=== PATIENT | male | born 1960 | race Caucasian/White ===

== ENCOUNTER 2022-02-03 13:30 | Emergency (ER) | payer MEDICARE ==
[2022-02-03] MEDS ORDERED: Sodium Chloride 0.9% 10 ML Syringe FLUSH PRN (14:17)
[2022-02-03] MEDS ORDERED: Sodium Chloride 0.9% 1,000 ML IV ONE (14:19)
[2022-02-03] MEDS ORDERED: Pantoprazole 80 MG in Sodium Chloride 0.9% 100 ML IV ONE (15:38)
[2022-02-03 15:52] LABS: CORONAVIRUS COVID-19 NAA POSITIVE (NEGATIVE)
[2022-02-03] MEDS ORDERED: Sodium Chloride 0.9% 500 ML IV ONE (16:21)
[2022-02-03] MEDS ORDERED: Pantoprazole 80 MG in Sodium Chloride 0.9% 100 ML IV SCH (17:45)
[2022-02-03] MEDS ORDERED: Octreotide 500 MCG in Sodium Chloride 0.9% 497.5 ML IV SCH (18:15)
[2022-02-03 20:42] VITALS: BP 144/56; PULSE 85
== END 2022-02-03 21:42 ==
LOC: JP.ED 13:30
DX: U07.1 COVID-19 (principal); K92.2 Gastrointestinal hemorrhage, unspecified; D50.0 Iron deficiency anemia secondary to blood loss (chronic); R53.1 Weakness; N17.9 Acute kidney failure, unspecified
CPT/HCPCS: 0241U; 36415; 36430; 80053; 83690; 85014; 85018; 85025; 85610; 85730; 86850; 86900; 86901; 86920; 86922; 93005; 93010; 96365; 96366; 96367; 99284; 99285-25; C9113; J2354-JA; J3490; J7030; J7040; P9016

== ENCOUNTER 2022-03-13 23:17 | Emergency (ER) | payer MEDICARE ==
[2022-03-13] MEDS ORDERED: Sodium Chloride 0.9% 10 ML Syringe FLUSH PRN (23:26)
[2022-03-14 00:18] VITALS: BP 112/65; PULSE 77
[2022-03-14] MEDS ORDERED: MVI, Adult with Vitamin K 10 ML, Thiamine 100 MG, Folic Acid 1 MG, Magnesium Sulfate 3 ... IV SCH ×5 (00:45)
== END 2022-03-14 09:30 | disposition home or self-care (01) ==
LOC: JP.ED 23:17
DX: F10.920 Alcohol use, unspecified with intoxication, uncomplicated (principal); K85.20 Alcohol induced acute pancreatitis without necrosis or infection; E87.0 Hyperosmolality and hypernatremia; Z79.899 Other long term (current) drug therapy
CPT/HCPCS: 36415; 80053; 80305-QW; 80307; 81001; 83690; 85025; 96365; 99284-25; 99285; J3411; J3475; J3490; J7030

== ENCOUNTER 2024-08-02 11:47 | Emergency (ER) | payer MEDICARE, MEDICAID ==
[2024-08-02 12:28] VITALS: BP 114/82; PULSE 79
[2024-08-02] MEDS ORDERED: methylPREDNISolone Sod Succ 125 MG in Dextrose 5% in Water 100 ML IV ONE (13:08)
[2024-08-02 13:48] LABS: BASOPHILS ABSOLUTE AUTO 0.07 K/uL (0.00-0.10); BASOPHILS PERCENT AUTO 0.9 % (0.1-1.3); EOSINOPHILS ABSOLUTE AUTO 0.13 K/uL (0.00-0.40); EOSINOPHILS PERCENT AUTO 1.6 % (0.0-5.4); HEMATOCRIT 37.4 % (38.4-49.7); HEMOGLOBIN 12.8 g/dL (12.9-16.9); IMMATURE GRAN ABSOLUTE AUTO 0.03 K/uL (0.00-0.23); IMMATURE GRAN PERCENT AUTO 0.4 % (0.0-0.7); LYMPHOCYTES ABSOLUTE AUTO 1.25 K/uL (0.8-3.3); LYMPHOCYTES PERCENT AUTO 15.3 % (11.4-47.7); MEAN CORPUSCULAR HEMOGLOBIN 33.1 pg (31.6-35.5); MEAN CORPUSCULAR HGB CONC 34.2 g/dL (31.6-35.5); MEAN CORPUSCULAR VOLUME 96.6 fL (81.4-99.0); MONOCYTES ABSOLUTE AUTO 0.85 K/uL (0.20-0.90); MONOCYTES PERCENT AUTO 10.4 % (3.3-12.6); NEUTROPHILS ABSOLUTE AUTO 5.86 K/uL (1.0-7.6); NEUTROPHILS PERCENT AUTO 71.4 % (40.0-78.1); PLATELET COUNT,PLT 234 K/uL (130-375); RED BLOOD CELL COUNT 3.87 M/uL (4.14-5.76); WHITE BLOOD CELL COUNT,WBC 8.2 K/uL (3.2-11.0)
[2024-08-02] MEDS: Sodium Chloride 0.9% 100 ML IV SCH (13:57)
[2024-08-02] MEDS: Sodium Chloride 0.9% 10 ML Syringe FLUSH PRN (13:57)
[2024-08-02] MEDS: Iopamidol 612 MG/ML 100 ML Bottle IV SCH (13:57)
[2024-08-02] MEDS: methylPREDNISolone Sodium Succinate 125 MG/2 ML SDV IVPUSH ONE (13:59)
[2024-08-02] MEDS: diphenhydrAMINE 50 MG/ML SDV IVPUSH ONE (13:59)
[2024-08-02 14:11] LABS: A/G RATIO 1.1 (1.2-2.2); ALANINE AMINOTRANSFERASE,ALT 31 U/L (12-78); ALBUMIN 4.1 g/dL (3.4-5.0); ALKALINE PHOSPHATASE 59 U/L (46-116); ASPARTATE AMNIOTRANSFERASE,AST 41 U/L (15-37); BILIRUBIN TOTAL 0.9 mg/dL (0.2-1.0); BLOOD UREA NITROGEN,BUN 15 mg/dL (7-18); CALCIUM 9.6 mg/dL (8.5-10.1); CARBON DIOXIDE,CO2 23 mmol/L (21-32); CHLORIDE,CL 93 mmol/L (100-108); CREATININE 1.3 mg/dL (0.8-1.3); EST CRCL DRUG DOSING (CG) 60.34 mL/min; ESTIMATED GFR 61 mL/min (>60); GLUCOSE RANDOM 83 mg/dL (74-106); POTASSIUM,K 3.9 mmol/L (3.6-5.2); PROTEIN TOTAL,TP 7.9 g/dL (6.4-8.2); SODIUM,NA 130 mmol/L (140-148)
[2024-08-02 14:12] LABS: ANION GAP 17.9 mmol/L (5.0-14.0)
[2024-08-02 14:31] LABS: APPEARANCE,URINE CLEAR (CLEAR); BILIRUBIN,URINE NEGATIVE (NEGATIVE); COLOR,URINE YELLOW (YELLOW); GLUCOSE,URINE NEGATIVE (NEGATIVE); KETONES,URINE 15 mg/dL (NEGATIVE); LEUKOCYTE ESTERASE,URINE NEGATIVE (NEGATIVE); NITRITE,URINE NEGATIVE (NEGATIVE); OCCULT BLOOD,URINE NEGATIVE (NEGATIVE); PH,URINE 5.5 (5.0-8.0); PROTEIN,URINE NEGATIVE (NEGATIVE); UROBILINOGEN,URINE 0.2 EU/dL (0.2-1.0)
[2024-08-02 14:44] LABS: BACTERIA,URINE RARE; EPITHELIAL CELLS,URINE RARE; MUCUS,URINE RARE; RBC,URINE NOT SEEN (0-5); WBC,URINE 0-5 (0-5)
[2024-08-02 14:45] LABS: AMORPHOUS SEDIMENT,URINE NOT SEEN
== END 2024-08-02 15:45 | disposition home or self-care (01) ==
LOC: JP.ED 11:47
DX: R22.0 Localized swelling, mass and lump, head (principal); Z86.16 Personal history of COVID-19; Z79.899 Other long term (current) drug therapy
CPT/HCPCS: 36415; 70450; 70488; 80053; 81001; 85025; 96374; 96375; 99284; J1200; J2919; J3490; Q9967

== ENCOUNTER 2025-07-05 03:21 | Day surgery (SDC) | payer MEDICAID, MEDICARE ==
[2025-07-05 03:40] LABS: BASOPHILS ABSOLUTE AUTO 0.06 K/uL (0.00-0.10); BASOPHILS PERCENT AUTO 0.5 % (0.1-1.3); EOSINOPHILS PERCENT AUTO 0.2 % (0.0-5.4); IMMATURE GRAN ABSOLUTE AUTO 0.05 K/uL (0.00-0.23); IMMATURE GRAN PERCENT AUTO 0.4 % (0.0-0.7); LYMPHOCYTES ABSOLUTE AUTO 0.86 K/uL (0.8-3.3); LYMPHOCYTES PERCENT AUTO 6.9 % (11.4-47.7); MONOCYTES ABSOLUTE AUTO 0.78 K/uL (0.20-0.90); MONOCYTES PERCENT AUTO 6.2 % (3.3-12.6); NEUTROPHILS ABSOLUTE AUTO 10.75 K/uL (1.0-7.6); NEUTROPHILS PERCENT AUTO 85.8 % (40.0-78.1); PLATELET COUNT,PLT 317 K/uL (130-375); RED BLOOD CELL COUNT 3.62 M/uL (4.14-5.76); WHITE BLOOD CELL COUNT,WBC 12.5 K/uL (3.2-11.0)
[2025-07-05 03:41] LABS: EOSINOPHILS ABSOLUTE AUTO 0.02 K/uL (0.00-0.40)
[2025-07-05 04:01] LABS: A/G RATIO 0.9 (1.2-2.2); ALANINE AMINOTRANSFERASE,ALT 23 U/L (12-78); ASPARTATE AMNIOTRANSFERASE,AST 19 U/L (15-37); BILIRUBIN TOTAL 1.2 mg/dL (0.2-1.0); BLOOD UREA NITROGEN,BUN 46 mg/dL (7-18); CARBON DIOXIDE,CO2 24 mmol/L (21-32); CHLORIDE,CL 99 mmol/L (100-108); CREATININE 1.5 mg/dL (0.8-1.3); EST CRCL DRUG DOSING (CG) 50.02 mL/min; ESTIMATED GFR 51 mL/min (>60); GLUCOSE RANDOM 149 mg/dL (74-106); POTASSIUM,K 4.5 mmol/L (3.6-5.2); PROTEIN TOTAL,TP 7.8 g/dL (6.4-8.2); SODIUM,NA 137 mmol/L (140-148)
[2025-07-05] MEDS: Ondansetron 4 MG/2 ML SDV IVPUSH ONE (04:27)
[2025-07-05] MEDS: Magnesium Sulfate 2 GM/50 mL 2 GM in Premix Bag 1 BAG IV ONE (06:58)
[2025-07-05 07:24] LABS: INR 1.1
[2025-07-05] MEDS ORDERED: fentaNYL 50 MCG/ML SDV ONE (08:30)
[2025-07-05] MEDS ORDERED: Midazolam 1 MG/ML 2 ML SDV ONE (08:30)
[2025-07-05] MEDS ORDERED: Propofol 200 MG/20 ML SDV ONE (08:33)
[2025-07-05 09:36] LABS: BASOPHILS ABSOLUTE AUTO 0.04 K/uL (0.00-0.10); BASOPHILS PERCENT AUTO 0.5 % (0.1-1.3); EOSINOPHILS PERCENT AUTO 0.1 % (0.0-5.4); IMMATURE GRAN PERCENT AUTO 0.2 % (0.0-0.7); LYMPHOCYTES ABSOLUTE AUTO 0.89 K/uL (0.8-3.3); LYMPHOCYTES PERCENT AUTO 10.7 % (11.4-47.7); MONOCYTES ABSOLUTE AUTO 0.68 K/uL (0.20-0.90); MONOCYTES PERCENT AUTO 8.2 % (3.3-12.6); NEUTROPHILS ABSOLUTE AUTO 6.64 K/uL (1.0-7.6); NEUTROPHILS PERCENT AUTO 80.3 % (40.0-78.1); PLATELET COUNT,PLT 291 K/uL (130-375); RED BLOOD CELL COUNT 3.13 M/uL (4.14-5.76); WHITE BLOOD CELL COUNT,WBC 8.3 K/uL (3.2-11.0)
[2025-07-05 09:40] LABS: EOSINOPHILS ABSOLUTE AUTO 0.01 K/uL (0.00-0.40); IMMATURE GRAN ABSOLUTE AUTO 0.02 K/uL (0.00-0.23)
[2025-07-05 12:07] LABS: BASOPHILS ABSOLUTE AUTO 0.04 K/uL (0.00-0.10); BASOPHILS PERCENT AUTO 0.5 % (0.1-1.3); EOSINOPHILS PERCENT AUTO 0.2 % (0.0-5.4); IMMATURE GRAN ABSOLUTE AUTO 0.03 K/uL (0.00-0.23); IMMATURE GRAN PERCENT AUTO 0.3 % (0.0-0.7); LYMPHOCYTES ABSOLUTE AUTO 1.19 K/uL (0.8-3.3); LYMPHOCYTES PERCENT AUTO 13.6 % (11.4-47.7); MONOCYTES ABSOLUTE AUTO 0.84 K/uL (0.20-0.90); MONOCYTES PERCENT AUTO 9.6 % (3.3-12.6); NEUTROPHILS ABSOLUTE AUTO 6.63 K/uL (1.0-7.6); NEUTROPHILS PERCENT AUTO 75.8 % (40.0-78.1); PLATELET COUNT,PLT 286 K/uL (130-375); RED BLOOD CELL COUNT 3.18 M/uL (4.14-5.76); WHITE BLOOD CELL COUNT,WBC 8.8 K/uL (3.2-11.0)
[2025-07-05 12:09] LABS: EOSINOPHILS ABSOLUTE AUTO 0.02 K/uL (0.00-0.40)
[2025-07-05 12:53] VITALS: BP 107/71; PULSE 98
== END 2025-07-05 13:15 ==
LOC: JP.ED 03:21 → JP.SDS 08:34 → JP.ED 13:15 → JP.SDS 13:15
PROVIDERS: ATTEND Surgery
DX: K29.51 Unspecified chronic gastritis with bleeding (principal); K44.9 Diaphragmatic hernia without obstruction or gangrene; K25.9 Gastric ulcer, unspecified as acute or chronic, without hemorrhage or perforation; I10 Essential (primary) hypertension; D64.9 Anemia, unspecified; E83.42 Hypomagnesemia; E80.6 Other disorders of bilirubin metabolism; Z79.899 Other long term (current) drug therapy
CPT/HCPCS: 00731; 36415; 43239; 80053; 80307; 82271; 83690; 83735; 85018; 85025; 85610; 87081; J2250; J2405; J2470; J2704; J3010; J3475; J7030